=== PATIENT | male | born 1950 | race Caucasian/White ===

== ENCOUNTER 2020-03-14 13:00 | Outpatient (CLI) | payer MEDICARE, SELFPAY ==
--- NOTE | ~2020-03-14 | XR_ITS ---
XR lumbar spine min 4V 03/14/2020 14:03 Indication: Low back pain Procedure: 5 views of the lumbar spine Comparison: No prior studies for comparison. Findings: Study limited due to contrast in the right colon limiting evaluation for lumbar spine on t he lateral view. There is disc narrowing at all lumbar levels. There is grade 1 spondylolisthesis at L4-5. No acute fracture or traumatic malalignment. There is multilevel facet hypertrophy. No signific ant alteration of alignment with flexion/extension. There is mild dextrocurvature of the lumbar spine centered at L3. Impression: 1: Moderate lumbar spondylosis. Reviewed, dictated and finalized at location A. Impression: 1: Moderate lumbar spondylosis.
--- NOTE | ~2020-03-14 | DEXA_ITS ---
Bone Density Report Name: Bob Clements Age: 69 Sex: Male Ethnicity: White Date of : 1950 Indication: age related osteoporosis, low back pain Referring Provider: Dara Bernal Study: Bone densitometry was performed. Exam Date: March 14, 2020 Accession number: [id number] Bone Density: Region BMD T-score Z-score Classification AP Spine (L1, L2) 1.175 1.1 2.0 Normal World Health Organization criteria for BMD impression classify patients as: Normal (T-score at or above -1.0), Osteopenia (T-score between -1.0 and -2.5), or Osteoporosis (T-score at or below -2.5). Clinical Information Provided by Patient: Has used the following medications: Vitamin D, Calcium Patient maximum height was 67 Impression: The patient has normal bone mass. Discussion: BONE DENSITY IS ABOVE THE MINIMUM DESIRABLE LEVEL AT ALL SKELETAL SITES TESTED. This patient?s bone mineral density is above the minimum desirable level (T-score -1.0 or better) at all sites measured. The patient should follow a healthful lifestyle (good nutrition with adequate calcium and vitamin D, and appropriate weight-bearing exercise). Follow-Up: Consider repeating this study in 5 years or sooner if there is some new clinical indication. Reported by: [facility] on 03/14/2020 1:43:00 PM. Reviewed, dictated and finalized at location [facility]
== END 2020-03-14 13:01 | disposition home or self-care (01) ==
LOC: ANHIMG 13:05
PROVIDERS: Visit Provider Physical Medicine & Rehabilitation Pain Medicine
DX: M47.896 Other spondylosis, lumbar region (principal); M81.0 Age-related osteoporosis without current pathological fracture
CPT/HCPCS: 72110; 77080